=== PATIENT | male | born 1940 | race Two or more races ===

== ENCOUNTER 2024-12-04 20:31 | Emergency (ER) | payer OTHER ==
[~2024-12-04] VITALS: Ht 175.3 cm; Wt 86.2 kg
[2024-12-04] MEDS ORDERED: IBERSARTAN PO (21:05)
[2024-12-04] MEDS ORDERED: VAZALORE81 MG PO (21:05)
[2024-12-04] MEDS ORDERED: METFORMIN HCL500 MG PO (21:06)
[2024-12-04] MEDS ORDERED: ZETIA10 MG PO (21:06)
[2024-12-04] MEDS ORDERED: CRESTOR40 MG (21:07)
[2024-12-04] MEDS ORDERED: DIPHTH,PERTUSS(ACELL),TET VAC 0.5 ML SYRINGE IM ONE ×2 (21:35→21:45)
[2024-12-04] MEDS ORDERED: LIDOCAINE HCL 1% 10ML VIAL ONE ×2 (21:35→22:35)
[2024-12-04] MEDS ORDERED: LIDOCAINE HCL 1% 2ML VIAL IJ ONE (21:45)
[2024-12-04] MEDS ORDERED: BACITRACIN-NEOMYCIN-POLYMYXIN 0.9 GM PACKET TOP ONE (22:53)
== END 2024-12-05 02:56 | disposition home or self-care (01) ==
LOC: ER 20:31
DX: S01.321A Laceration with foreign body of right ear, initial encounter (principal); W18.39XA Other fall on same level, initial encounter; Y93.89 Activity, other specified; Y92.89 Other specified places as the place of occurrence of the external cause; I10 Essential (primary) hypertension; E78.00 Pure hypercholesterolemia, unspecified
CPT/HCPCS: 12013; 70450; 90471; 90714; J1670